=== PATIENT | male | born 1955 | race Caucasian/White ===

== ENCOUNTER 2019-03-05 09:44 | Outpatient (REF) | payer MEDICARE, SELFPAY ==
[2019-03-05 22:04] LABS: Abs Immature Grans 0.02 k/cumm (0.0-0.09); Absolute Basophil Count 0.02 k/cumm (0.0-0.2); Absolute Eosinophil Count 0.06 k/cumm (0.0-0.7); Absolute Lymphocyte Count 1.93 k/cumm (1.2-3.4); Absolute Monocyte Count 0.72 k/cumm (0.11-0.7); Absolute Neutrophil Count 4.26 k/cumm (1.2-6.7); Basophils % 0.3; Eosinophils % 0.9; HCT 48.1 % (40.0-50.0); HGB 16.7 g/dL (13.5-17.5); Immature Grans % 0.3; Lymphocytes % 27.5; Mean Corp. HGB Concentration 34.7 g/dL (32.0-36.0); Mean Corpuscular Hemoglobin 31.3 pg (27.0-33.0); Mean Corpuscular Volume 90.2 fL (80-95); Monocytes % 10.3; Neutrophils % 60.7; Platelet Count 228 x1000/uL (130-400); RBC 5.33 m/cumm (4.50-6.00); RBC Distribution Width 13.4 % (11.8-14.1); White Blood Cell Count 7.01 k/cumm (4.4-10.8)
[2019-03-05 22:05] LABS: ALT 47 U/L (12-78); AST 24 U/L (15-37); Albumin 4.4 g/dL (3.4-5.0); Alkaline Phosphatase 51 U/L (46-116); Anion Gap 9.8 mmol/L (3-11); BUN 18 mg/dL (7-18); Bilirubin, Total 1.8 mg/dL (0.2-1.0); CO2 26.2 mmol/L (21.0-32.0); Calcium 8.3 mg/dL (8.5-10.1); Chloride 99 mmol/L (98-107); Glucose 106 mg/dL (70-100); Potassium 4.1 mmol/L (3.5-5.1); Sodium 135 mmol/L (136-145); Total Protein 7.6 g/dL (6.4-8.2)
[2019-03-05 23:09] LABS: ESR 5 MM/HR (1-20)
[2019-03-07 10:42] LABS: PSA, Screening 0.5 ng/ml (0-4.5)
== END 2019-03-05 10:04 ==
LOC: NCHCN 09:44
PROVIDERS: PCP Family Medicine; Visit Provider Family Medicine
DX: I10 Essential (primary) hypertension (principal); Z12.5 Encounter for screening for malignant neoplasm of prostate
CPT/HCPCS: 80053; 84153; 85652; 85025; 86140

== ENCOUNTER 2019-03-19 14:37 | Outpatient (CLI) | payer MEDICARE, SELFPAY ==
--- NOTE | 2019-03-19 01:54 | DI.RAD_ITS ---
SYMPTOMS/DIAGNOSIS: RIB PAIN, R07.81 PA AND LATERAL CHEST AND LEFT RIBS: Comparison is made with chest x-ray dated . The heart size is normal. The aorta is not dilated. The lungs appear clear. There is no evidence of pneumothorax. A marker was placed over the lower left ribs in the area of the patient's pain. No rib fracture is visible. There is no thoracic compression fracture. Degenerative disc changes are seen in the thoracic spine. IMPRESSION: No acute abnormality.
== END 2019-03-19 14:57 ==
PROVIDERS: PCP Family Medicine; Visit Provider Family Medicine
DX: R07.81 Pleurodynia (principal)
CPT/HCPCS: 71046; 71100

== ENCOUNTER → 2019-09-04 10:01 | Outpatient (BNVA) | payer MEDICARE, SELFPAY | PROVIDERS: PCP Family Medicine; Referring Provider Family Medicine; Visit Provider Nurse Practitioner Adult Health | DX: G56.03 Carpal tunnel syndrome, bilateral upper limbs (principal); G56.23 Lesion of ulnar nerve, bilateral upper limbs | CPT/HCPCS: 95910; 99203 ==

== ENCOUNTER 2019-09-09 08:22 | Outpatient (CLI) | payer MEDICARE, SELFPAY ==
[2019-09-09 09:38] LABS: Hemoglobin A1C 5.6 % (4.5-6.2)
[2019-09-09 09:48] LABS: TSH (W/Ref FT4) 2.26 uIU/mL (0.36-3.74)
== END 2019-09-09 08:42 ==
PROVIDERS: PCP Family Medicine; Visit Provider Family Medicine
DX: I10 Essential (primary) hypertension (principal); R73.9 Hyperglycemia, unspecified; R30.0 Dysuria
CPT/HCPCS: 36415; 83036; 84443

== ENCOUNTER 2020-11-13 11:16 | Outpatient (REF) | payer MEDICARE, SELFPAY ==
[2020-11-13 15:24] LABS: ALT 52 U/L (16-63); AST 30 U/L (15-37); Albumin 4.5 g/dL (3.4-5.0); Alkaline Phosphatase 49 U/L (46-116); Anion Gap 9.1 mmol/L (3-11); BUN 17 mg/dL (7-18); Bilirubin, Total 1.1 mg/dL (0.2-1.0); CO2 23.9 mmol/L (21.0-32.0); CREATININE 1.03 mg/dL (0.70-1.30); Calcium 8.7 mg/dL (8.5-10.1); Calculated LDL 123 mg/dL (<100); Chloride 102 mmol/L (98-107); Cholesterol 200 mg/dL (<200); Glucose 119 mg/dL (74-106); HDL Cholesterol 42 mg/dL (40-60); Potassium 4.3 mmol/L (3.5-5.1); Sodium 135 mmol/L (136-145); Total Protein 7.6 g/dL (6.4-8.2); Triglyceride 179 mg/dL (<150)
[2020-11-13 22:02] LABS: PSA, Screening 0.4 ng/mL (0.0-4.5)
== END 2020-11-13 11:36 ==
LOC: NCHCN 11:16
PROVIDERS: PCP Family Medicine; Visit Provider Family Medicine
DX: I10 Essential (primary) hypertension (principal); N40.0 Benign prostatic hyperplasia without lower urinary tract symptoms; G56.03 Carpal tunnel syndrome, bilateral upper limbs; Z12.5 Encounter for screening for malignant neoplasm of prostate
CPT/HCPCS: 80053; 80061; 84153

== ENCOUNTER 2021-02-15 14:58 | Outpatient (REF) | payer MEDICARE, SELFPAY ==
[2021-02-16 12:13] LABS: COVID-19 RT-PCR UVMMC Result Negative (Negative)
== END 2021-02-15 14:59 | disposition home or self-care (01) ==
LOC: LBN 14:58
PROVIDERS: PCP Family Medicine; Visit Provider Nurse Practitioner Family
DX: Z20.822 Contact with and (suspected) exposure to COVID-19 (principal); R30.0 Dysuria
CPT/HCPCS: 87077; U0003; U0005; 87086; 87186

== ENCOUNTER 2021-07-26 13:59 | Outpatient (REF) | payer MEDICARE, SELFPAY ==
[2021-07-26 14:14] LABS: Abs Immature Grans 0.03 10^3/uL (0.0-0.06); Absolute Basophil Count 0.04 10^3/uL (0.0-0.2); Absolute Eosinophil Count 0.11 10^3/uL (0.0-0.7); Absolute Lymphocyte Count 1.93 10^3/uL (1.2-3.4); Absolute Monocyte Count 0.61 10^3/uL (0.1-0.8); Absolute Neutrophil Count 3.24 10^3/uL (1.2-6.7); Basophils % 0.7; Eosinophils % 1.8; HCT 43.1 % (40.0-50.0); HGB 14.7 g/dL (13.5-17.5); Immature Grans % 0.5; Lymphocytes % 32.4; MCH 31.5 pg (27.0-33.0); MCHC 34.1 % (32.0-36.0); MCV 92.5 fL (80-95); MPV 10.4 fL (8.0-11.0); Monocytes % 10.2; Neutrophils % 54.4; Nucleated RBC 0 %; Platelet Count 240 10^3/uL (130-400); RBC 4.66 10^6/uL (4.36-5.78); RDW 12.3 % (11.8-14.1); RDW-SD 42.2 fL; WBC 5.96 10^3/uL (4.4-10.8)
[2021-07-26 14:31] LABS: ESR 8 mm/hr (0-20)
[2021-07-26 15:15] LABS: C-Reactive Protein 0.29 mg/dL (0.0-0.3); Uric Acid 5.7 mg/dL (3.5-7.2)
== END 2021-07-26 14:00 | disposition home or self-care (01) ==
LOC: LBN 13:59
PROVIDERS: PCP Family Medicine; Visit Provider Nurse Practitioner Family
DX: R22.31 Localized swelling, mass and lump, right upper limb (principal)
CPT/HCPCS: 85652; 84550; 85025; 86140

== ENCOUNTER 2022-06-08 18:21 | Outpatient (REF) | payer MEDICARE, SELFPAY ==
[2022-06-10 11:25] LABS: COVID-19 RT-PCR UVMMC Result Negative (Negative)
== END 2022-06-08 18:22 | disposition home or self-care (01) ==
LOC: LBN 18:21
PROVIDERS: PCP Family Medicine; Visit Provider Physician Assistant Medical
DX: Z20.822 Contact with and (suspected) exposure to COVID-19 (principal)
CPT/HCPCS: U0003; U0005

== ENCOUNTER 2022-08-09 15:10 | Outpatient (REF) | payer MEDICARE, SELFPAY ==
[2022-08-09 19:44] LABS: Hemoglobin A1C 5.6 % (<5.7)
[2022-08-09 20:27] LABS: ALT 43 U/L (16-63); AST 26 U/L (15-37); Albumin 4.3 g/dL (3.4-5.0); Alkaline Phosphatase 52 U/L (46-116); Anion Gap 11.4 mmol/L (3-11); BUN 20 mg/dL (7-18); Bilirubin, Total 0.8 mg/dL (0.2-1.0); CO2 22.6 mmol/L (21.0-32.0); CREATININE 0.9 mg/dL (0.70-1.30); Chloride 102 mmol/L (98-107); Estimated GFR 94.19 (mL/min/1.73m2); Glucose 107 mg/dL (74-106); Potassium 3.7 mmol/L (3.5-5.1); Sodium 136 mmol/L (136-145); TSH 2.83 uIU/mL (0.36-3.74); Vitamin B12 370 pg/mL (193-986)
== END 2022-08-09 15:11 | disposition home or self-care (01) ==
LOC: NCHCN 15:10
PROVIDERS: PCP Family Medicine; Visit Provider Family Medicine
DX: Z00.00 Encounter for general adult medical examination without abnormal findings (principal); I10 Essential (primary) hypertension; R10.12 Left upper quadrant pain; R07.9 Chest pain, unspecified; R73.03 Prediabetes; M79.642 Pain in left hand; M79.641 Pain in right hand
CPT/HCPCS: 80053; 82607; 83036; 84443

== ENCOUNTER 2022-08-25 01:26 | Outpatient (CLI) | payer MEDICARE, SELFPAY ==
--- NOTE | 2022-08-25 08:45 | DI.NM_ITS ---
APPROVED REPORT Exam: Exercise Treadmill Patient Location: Out-Patient Room/Bed: Stress Nurse: Jo Ann Saavedra RN Ordering Provider:AMAN LAUREN, Contact Number: [phone] BMI: 28.05 Baseline Rhythm: Sinus Rhythm Comment: Minimal ST elevation, anterior leads Indications: Chest pain. Medical History Medical History: HTN. Bradycardia. Cardiac Medications: Losartan. HCTZ. Aspirin. Allergies: Lyrica. Tramadol. Iodinated contrast media. Cipro. Gabapentin. Lisinopril. Cardiac Risk Factors: Family history. HTN. HLD. Former smoker. Previous Cardiac Procedures: None Pretest Chest Pain Characteristics: None Exercise History: Physically active Physical Disabilities: None Lung Sounds: Clear to auscultation Heart Sounds: Regular Stress Test Details Test: Exercise stress testing was performed using a Erik protocol. Nuclear Acquisition: Rest Tc-99m/Stress Tc-99m 1 day Rest Isotope: Tc-99m Sestamibi. Dose: 10.2 Date: 08/25/2022 Injection Time: 0900 Stress Isotope: Tc-99m Sestamibi. Dose: 32 Date: 08/25/2022 Injection Time: 1034 HR Resting HR Supine: 53 bpm Max Heart Rate (APMHR): 154.092741 bpm Resting HR Standin bpm Target HR (85% APMHR): 130.999687 bpm Max HR Achieved: 150 bpm % of APMHR: 97.40 Recovery HR: 75 bpm HR response to stress: Normal HR response to stress BP Resting BP Supine: 174/82 mmHg Resting BP Standin/82 mmHg Max BP: 184/88 mmHg Recovery BP: 168/88 mmHg BP response to stress: Normal blood pressure response to stress. ECG Resting ECG: Sinus Rhythm Ectopy: none Stress ECG: Sinus Tachycardia ST Change: No significant ST segment changes noted Arrhythmia: None Recovery ECG: Sinus Rhythm Recovery ST Change: ST depressions Lead(s): V4, V5 Recovery ST Deviation: 0.5-1mm mm Recovery Arrhythmia: None Clinical Reason for Termination: Fatigue Stress Symptoms: Chest pain, General Fatigue Exercise duration: 09 min29 sec Highest Stage Reached: Stage 4: 4.2 mph at 16% grade. Exercise capacity: 10.95 METs Scale: Active Angina Score: Non-Limiting Rate Pressure Product: [id number] Stress ECG Conclusion 1. Resting electrocardiogram was within normal limits 2. Patient underwent exercise testing using the Erik protocol and completed a workload of 10.95 METS 3. Normal heart rate and blood pressure response to exercise. Patient achieved 97% of predicted hear t rate for age 4. Peak exercise there was approximately [address] depression in the inferior and anterolat eral leads consistent with myocardial ischemia 5. There were no dysrhythmias 6. See MPI report Stress Test Summary STAGE Time (mins) Speed (mph) Grade (%) HR BP SpO2 SYMPTOMS METS Supine 53 174/82 Standing 60 180/82 1 3 1.7 10 102 164/80 4.5 2 6 2.5 12 114 174/78 95 7 3 9 3.4 14 150 3/10 chest pain 10 1 min recovery 128 184/80 3/10 chest pain 3 min recovery 89 184/88 96 Chest pain subsided 6 min recovery 75 168/88 6/10 left shoulder pain. Left shoulder pain reported during recovery. Pt reports shoulder pain is chronic due to a torn rotato r cuff. Pt reports holding onto the treadmill bar may have aggravated his shoulder. 3/10 chest pain o ccuring in stage4 of exercise, subsided within 1 minute of rest. MPI Conclusion Myocardial perfusion is normal without evidence of ischemia or prior infarction EF 46%, normal wall motion Radiologist Interpretation Radiologist agrees with Slasher Hand's Interpretation. Radiologist Interpretation by: Braulio Alcazar MD Interpretation Date/Time: 08/25/2022 16:51:47
== END 2022-08-25 01:46 ==
PROVIDERS: PCP Family Medicine; Visit Provider Family Medicine
DX: R07.9 Chest pain, unspecified (principal)
CPT/HCPCS: 78452; 93016; 93018; 93017

== ENCOUNTER 2022-09-21 11:58 | Outpatient (CLI) | payer MEDICARE, SELFPAY ==
--- NOTE | 2022-09-21 | DI.CT_ITS ---
Exam(s) CT ABDOMEN PELVIS WO EXAM: CT ABDOMEN PELVIS WO CLINICAL HISTORY: ABD PAIN R10.9, ? DIVERTICULITIS, LLQ PAIN AND FEVER. TECHNIQUE: Imaging Protocol: Axial computed tomography images with coronal and sagittal reformatted images were created and reviewed. Oral: COMPARISON: CT PELVIC/LOWER ABD WITHOUT CONT from 11/25/2014 CT,NM,TMT NM MPI REST STRESS GRP from 08/25/2022 FINDINGS: ABDOMEN: Lung Bases: Normal where visualized. Liver: Normal density. No measurable mass. Gallbladder and biliary tract: No radiodense calculus or dilation. Pancreas: Normal density, no abnormal calcifications or inflammatory process. Spleen: Normal. Kidneys: Normal size, contour and axis. No radiodense stones or obstructive uropathy. No masses seen. Adrenal glands: No masses seen. Lymph nodes: Within normal limits. Abdominal Aorta: Abdominal portion non-dilated. [id number] atherosclerotic changes. PELVIS: Bladder: Symmetric distention, no gross wall thickening. Bowel: Diverticulosis descending and sigmoid colon. Wall thickening and adjacent stranding at the pr oximal sigmoid consistent with diverticulitis. No evidence of perforation. No obstruction or bowel wall thickening. Appendix normal. Peritoneal cavity: No ascites, no focal collection. Reproductive organs: Within normal limits. Bones: Degenerative changes noted in the lumbar spine. IMPRESSION: Sigmoid diverticulitis. RADIATION DOSE DELIVERED: 812.5mGy.cm Total DLP DATA REPOSITORY: All CT scans at this facility are submitted to the National Radiology Data Registry (NRDR) Dose Index Registry (DIR) with the [employer] (ACR). RADIATION OPTIMIZATION: All CT scans at this facility use at least one of these dose optimization te chniques: automated exposure control; mA and/or kV adjustment per patient size (includes targeted exa ms where dose is matched to clinical indication); or iterative reconstruction.
== END 2022-09-21 12:18 ==
LOC: DI 11:58
PROVIDERS: PCP Family Medicine; Visit Provider Physician Assistant Medical
DX: K57.32 Diverticulitis of large intestine without perforation or abscess without bleeding (principal)
CPT/HCPCS: 74176

== ENCOUNTER 2022-09-21 19:46 | Outpatient (REF) | payer MEDICARE, SELFPAY ==
[2022-09-21 16:35] LABS: Abs Immature Grans 0.06 10^3/uL (0.0-0.06); Absolute Basophil Count 0.03 10^3/uL (0.0-0.2); Absolute Eosinophil Count 0.15 10^3/uL (0.0-0.7); Absolute Lymphocyte Count 2.28 10^3/uL (1.2-3.4); Absolute Monocyte Count 1.59 10^3/uL (0.1-0.8); Absolute Neutrophil Count 8.54 10^3/uL (1.2-6.7); Basophils % 0.2; Eosinophils % 1.2; HCT 44.5 % (40.0-50.0); HGB 15.2 g/dL (13.5-17.5); Immature Grans % 0.5; MCH 31.2 pg (27.0-33.0); MCHC 34.2 % (32.0-36.0); MCV 91 fL (80-95); MPV 10.9 fL (8.0-11.0); Monocytes % 12.6; Neutrophils % 67.5; Platelet Count 229 10^3/uL (130-400); RBC 4.87 10^6/uL (4.36-5.78); RDW 12.9 % (11.8-14.1); RDW-SD 43.3 fL; WBC 12.65 10^3/uL (4.4-10.8)
[2022-09-21 16:43] LABS: Bacteria Rare HPF (Negative); C & S Indicated? C&S Done As Ordered; Casts Negative LPF (Negative); Crystals Negative HPF (Negative); Epithelial Cells Rare HPF (Negative); Mucus Negative (Negative); RBC 0-2 HPF (0-2)
[2022-09-21 16:47] LABS: Diff Comment Diff Reviewed; RBC Morphology Normal
[2022-09-21 16:49] LABS: ALT 26 U/L (16-63); AST 24 U/L (15-37); Albumin 4.3 g/dL (3.4-5.0); Alkaline Phosphatase 65 U/L (46-116); Anion Gap 11.8 mmol/L (3-11); BUN 13 mg/dL (7-18); CO2 26.2 mmol/L (21.0-32.0); Calcium 9.4 mg/dL (8.5-10.1); Chloride 99 mmol/L (98-107); Estimated GFR 83.01 (mL/min/1.73m2); Glucose 111 mg/dL (74-106); Potassium 4.5 mmol/L (3.5-5.1); Sodium 137 mmol/L (136-145)
== END 2022-09-21 19:47 | disposition home or self-care (01) ==
LOC: LBN 19:46
PROVIDERS: PCP Family Medicine; Visit Provider Physician Assistant Medical
DX: R10.9 Unspecified abdominal pain (principal); R30.0 Dysuria
CPT/HCPCS: 80053; 81015; 85025; 87086

== ENCOUNTER 2022-10-13 10:48 | Outpatient (CLI) | payer MEDICARE, SELFPAY ==
--- NOTE | 2022-10-13 | DI.CT_ITS ---
Exam(s) CT ABDOMEN PELVIS WO EXAM: CT ABDOMEN PELVIS WO CLINICAL HISTORY: DIVERTICULITIS OF SIGMOID COLON, K57.32; ABD PAIN, R10.9. TECHNIQUE: Imaging Protocol: Axial computed tomography images with coronal and sagittal reformatted images were created and reviewed. COMPARISON: CT CT ABDOMEN PELVIS WO from 09/21/2022 FINDINGS: ABDOMEN: Lung Bases: Normal where visualized. Liver: Normal density. No measurable mass. Gallbladder and biliary tract: No radiodense calculus or biliary ductal dilation. Pancreas: Normal density. There are some calcifications seen in the pancreatic head which may reflect prior episodes of pancreatitis. These are unchanged. Spleen: Normal. Kidneys: Normal size, contour and axis.No radiodense stones or obstructive uropathy. No masses seen. Adrenal glands: No mass is seen. Lymph nodes: Within normal limits. Abdominal Aorta: Abdominal portion non-dilated. Atherosclerosis is present. PELVIS: Bladder:Symmetric distention, no gross wall thickening. Bowel: No obstruction or bowel wall thickening. Appendix is unremarkable. There is diverticulosis se en in the colon, but no evidence of acute diverticulitis. Peritoneal cavity: No ascites, collection or mesenteric inflammatory response. No free air. Reproductive organs: Unremarkable as visualized. Bones: Within normal limits. There is an old healed right inferior pubic ramus fracture. Soft Tissues: There are small bilateral fat containing inguinal hernias. There is a small fat contain ing umbilical hernia. IMPRESSION: 1. No acute abdominal or pelvic process. 2. Colonic diverticulosis, but no evidence of acute diverticulitis. RADIATION DOSE DELIVERED: 1,061.84mGy.cm Total DLP DATA REPOSITORY: All CT scans at this facility are submitted to the National Radiology Data Registry (NRDR) Dose Index Registry (DIR) with the [employer] (ACR). RADIATION OPTIMIZATION: All CT scans at this facility use at least one of these dose optimization te chniques: automated exposure control; mA and/or kV adjustment per patient size (includes targeted exa ms where dose is matched to clinical indication); or iterative reconstruction.
== END 2022-10-13 11:08 ==
LOC: DI 10:50
PROVIDERS: PCP Family Medicine; Visit Provider Nurse Practitioner Family
DX: K57.30 Diverticulosis of large intestine without perforation or abscess without bleeding (principal)
CPT/HCPCS: 80061; 82550; 74176; 82565

== ENCOUNTER 2022-10-13 15:21 | Outpatient (REF) | payer MEDICARE, SELFPAY ==
[2022-10-13 16:43] LABS: Abs Immature Grans 0.06 10^3/uL (0.0-0.06); Absolute Basophil Count 0.05 10^3/uL (0.0-0.2); Absolute Eosinophil Count 0.25 10^3/uL (0.0-0.7); Absolute Lymphocyte Count 2.26 10^3/uL (1.2-3.4); Absolute Monocyte Count 0.64 10^3/uL (0.1-0.8); Absolute Neutrophil Count 3.89 10^3/uL (1.2-6.7); Basophils % 0.7; Eosinophils % 3.5; HCT 44.8 % (40.0-50.0); HGB 15.3 g/dL (13.5-17.5); Immature Grans % 0.8; Lymphocytes % 31.6; MCH 31.2 pg (27.0-33.0); MCHC 34.2 % (32.0-36.0); MCV 91 fL (80-95); MPV 10.5 fL (8.0-11.0); Neutrophils % 54.4; Platelet Count 242 10^3/uL (130-400); RBC 4.91 10^6/uL (4.36-5.78); RDW 12.6 % (11.8-14.1); RDW-SD 42.1 fL; WBC 7.15 10^3/uL (4.4-10.8)
== END 2022-10-13 15:22 | disposition home or self-care (01) ==
LOC: NCHCN 15:21
PROVIDERS: PCP Family Medicine; Visit Provider Family Medicine
DX: K57.32 Diverticulitis of large intestine without perforation or abscess without bleeding (principal); R10.9 Unspecified abdominal pain; R07.9 Chest pain, unspecified
CPT/HCPCS: 80061; 82550; 85025

== ENCOUNTER → 2022-10-18 12:28 | Outpatient (BNVA) | payer MEDICARE, SELFPAY | PROVIDERS: PCP Family Medicine; Referring Provider Family Medicine; Visit Provider Surgery | DX: K57.92 Diverticulitis of intestine, part unspecified, without perforation or abscess without bleeding (principal); K21.9 Gastro-esophageal reflux disease without esophagitis; K40.20 Bilateral inguinal hernia, without obstruction or gangrene, not specified as recurrent; R10.12 Left upper quadrant pain; I10 Essential (primary) hypertension; Z80.0 Family history of malignant neoplasm of digestive organs | CPT/HCPCS: 99205; 99243 ==

== ENCOUNTER → 2022-10-26 11:03 | Outpatient (CLI) | payer MEDICARE, SELFPAY ==
--- NOTE | 2022-10-26 12:23 | DI.RAD_ITS ---
Exam(s) XR CERVICAL SPINE COMP 4-5V EXAM: XR CERVICAL SPINE COMP 4-5V CLINICAL HISTORY: NECK PAIN M54.2, EVALUATE FOR BONY ABNORMALITIES. TECHNIQUE: 2D digital imaging was performed. COMPARISON: CR CERVICAL SP. LIMITED (TRAUMA) from 10/18/2014 CR XR SHOULDER RT COMPLETE 2+V from 10/26/2022 FINDINGS: Five views: There is no evidence of obvious acute cervical spine fracture nor listhesis. No offset of the spinal laminar line.. There is mild disc space narrowing at C5-6 and C6-7 levels. No prominent Luschka rosendo int osteophytes. Small bilateral cervical ribs at C7 level, larger on the left side. Some facet art hropathy is noted, most evident at the C 3-4 and C4-5 levels. No facet malalignment. IMPRESSION: Degenerative changes as described above. Also small C7 cervical ribs noted, left larger than right. DATA REPOSITORY: RADIATION DOSE DELIVERED:
--- NOTE | 2022-10-26 12:23 | DI.RAD_ITS ---
Exam(s) XR SHOULDER RT COMPLETE 2+V EXAM: XR SHOULDER RT COMPLETE 2+V CLINICAL HISTORY: PAIN RT SHOULDER M25.511. TECHNIQUE: 2D digital imaging was performed. COMPARISON: CR LEFT SHOULDER COMPLETE from 04/24/2011 FINDINGS: Five views: No evidence of fracture or dislocation. No calcifications in subacromial space which is not diminish ed. No obvious degenerative changes in the glenohumeral joint. There are moderate degenerative moore ges in the AC joint. No clavicle fracture seen. IMPRESSION: Degenerative AC joint changes. DATA REPOSITORY: RADIATION DOSE DELIVERED:
== END ==
PROVIDERS: PCP Family Medicine; Visit Provider Physician Assistant Medical
DX: M25.511 Pain in right shoulder (principal); M19.011 Primary osteoarthritis, right shoulder; M50.322 Other cervical disc degeneration at C5-C6 level; M50.323 Other cervical disc degeneration at C6-C7 level; M47.812 Spondylosis without myelopathy or radiculopathy, cervical region
CPT/HCPCS: 72050; 73030

== ENCOUNTER 2022-11-02 05:55 | Day surgery (SDC) | payer MEDICARE, SELFPAY ==
[2022-11-02 06:29] VITALS: BP 159/93; PULSE 73; RESP 18; TEMP 37.1; O2SAT 95
[2022-11-02] MEDS: Lactated Ringers 1,000 ML 80 ML IV (06:47)
--- NOTE | 2022-11-02 06:58 | W.ANESPRE ---
General Info Date of Service Date Performed: 11/02/22 Height: 5 ft 9 in Weight: 89.811 kg Body Mass Index (BMI): 29.2 Surgical Procedure: Operation Date: 11/02/22 07:35 Proposed Procedure Side Surgeon p Colonoscopy Anshul Shafer MD Actual Procedure Side Surgeon p Colonoscopy Not Applicable Anshul Shafer MD Meds Allergies and Home Medications Allergies Allergy/AdvReac Type Severity Reaction Status Date / Time ciprofloxacin [From Cipro] Allergy Severe Vomiting Unverified 11/02/22 06:36 gabapentin Allergy Severe Paranoia Unverified 11/02/22 06:36 Iodinated Contrast Media Allergy Severe seizures Unverified 11/02/22 06:36 iodine Allergy Severe Anaphylaxsi Unverified 11/02/22 06:36 s pregabalin [From Lyrica] Allergy Severe paronia Unverified 11/02/22 06:36 lisinopril Allergy Intermediate cough Unverified 11/02/22 06:36 tramadol Allergy Intermediate vomiting Unverified 11/02/22 06:36 stomach cramps Home Medication Medication Instructions Recorded aspirin 81 mg tablet,delayed 1 tab PO DAILY 10/18/14 release (Aspir-) acetaminophen 500 mg tablet 1,000 mg PO Q6H 11/01/14 naproxen sodium 220 mg capsule 440 mg PO BID PRN PRN ##0 11/06/14 (Aleve) ibuprofen 200 mg capsule (Advil 400 mg PO PRN PRN 12/26/14 Liqui-Gel) triamcinolone acetonide 0.1 % 1 applic topical BID PRN 08/23/19 topical cream pantoprazole 40 mg tablet,delayed 40 mg PO DAILY 10/04/22 release rosuvastatin 5 mg tablet 5 mg PO DAILY 10/04/22 bisacodyl 5 mg tablet,delayed 5 mg PO ONCE colonscopy bowel prep 10/18/22 release (Dulcolax (bisacodyl)) #4 tabs losartan 25 mg tablet 100 mg PO DAILY 10/18/22 polyethylene glycol 3350 17 238 g PO ONCE colonoscopy prep 10/18/22 gram/dose oral powder #238 grams Current Visit Medications: Current Medications Generic Name Dose Route Start Last Admin Trade Name Freq PRN Reason Stop Dose Admin Ringer's Solution 1,000 mls @ 80 mls/hr 11/02/22 06:00 11/02/22 06:47 IV 12/01/22 23:59 80 mls/hr INFUSION MARIBEL Administration IV Miscellaneous Supplies 1 each 11/02/22 06:00 Iv Access IV 12/01/22 23:59 DIRECTED MARIBEL Sodium Chloride 0 ml 11/02/22 06:00 Normal Saline Flush 10 Ml Syr IV 12/01/22 23:59 PRN PRN Sodium Chloride 0 ml 11/02/22 06:00 Normal Saline 10 Ml Vial IJ 12/01/22 23:59 DIRECTED PRN Sterile Water 0 ml 11/02/22 06:00 Water,Injection,Sterile 10 Ml Vial IJ 12/01/22 23:59 DIRECTED PRN PFSH Active Problems Active Problems: Problem Status Onset Code Chronic GERD K21.9 Bilateral inguinal hernia, without obstruction or gangrene, not specified as recurrent K40.20 Family hx of colon cancer Z80.0 Hearing deficit H91.90 LUQ pain R10.12 Chest pain R07.9 Abdominal pain R10.9 Diverticulitis K57.92 Hypertension I10 H/O surgical procedure Z98.89 H/O traumatic fracture Z87.81 h/o uethral injury h/o low back trauma Traumatic hematoma of left thigh S70.12XA Cellulitis of left thigh L03.116 Constipation due to pain medication T50.901A, K59.09 Medical History Medical History Actinic keratitis Arthralgia Bilateral hand pain BPH (benign prostatic hyperplasia) Bradycardia Crush injury Dysuria Fatigue Insomnia Lumbar spinal stenosis Pelvic fracture RLS (restless legs syndrome) Stenosis of intervertebral foramen Tick bite Urethral stricture Surgical History Surgical History History of lumbosacral spine surgery Tobacco Smoking/Tobacco Use Status: Former Tobacco Use Alcohol Alcohol Intake: never Substance Use Substance use: Never Vital Signs and Lab Results Vital Signs Most Recent Vital Signs in EMR: Most Recent Vital Signs Temp Pulse Resp BP Pulse Ox 37.1 C 73 18 159/93 H 95 11/02/22 06:29 11/02/22 06:29 11/02/22 06:29 11/02/22 06:29 11/02/22 06:29 Lab Results Blood Type / Crossmatch: No Data to Display Complete Blood Count: White Blood Count 7.15 10^3/uL (4.4-10.8) 10/13/22 08:04 Red Blood Count 4.91 10^6/uL (4.36-5.78) 10/13/22 08:04 Hemoglobin 15.3 g/dL (13.5-17.5) 10/13/22 08:04 Hematocrit 44.8 % (40.0-50.0) 10/13/22 08:04 Platelet Count 242 10^3/uL (130-400) 10/13/22 08:04 Complete Metabolic Panel: No Data to Display Liver Function Panel: No Data to Display Coagulation Panel: No Data to Display Cardiac Panel: No Data to Display Arterial Blood Gas: No Data to Display Venous Blood Gas: No Data to Display Pancreas Panel: No Data to Display Thyroid Panel: No Data to Display Infectious Disease: No Data to Display Blood Cultures: No Data to Display Toxicology Panel: No Data to Display Imaging and Studies Imaging and Studies Study information below may be from another EMR and interpreted by another provider. Please see original notes in EMR for more complete details. Stress Test Summary: 08/25/2022: Stress ECG Conclusion 1. Resting electrocardiogram was within normal limits 2. Patient underwent exercise testing using the Erik protocol and completed a workload of 10.95 METS 3. Normal heart rate and blood pressure response to exercise. Patient achieved 97% of predicted heart rate for age 4. Peak exercise there was approximately [address] depression in the inferior and anterolateral leads consistent with myocardial ischemia 5. There were no dysrhythmias 6. See MPI report Per Dr. Kwan (cardiology): Stress test done in August showed well above average exercise tolerance. Myocardial perfusion imaging is normal, no ischemia or infarction. The electrocardiographic portion of the test would be considered a false positive and not clinically of any significance. Please be advised that I have never personally seen or examined the patient. His stress test is not concerning. Based on that alone I would consider him below average risk for colonoscopy and/or hernia repair Anesthesia Assessment and Plan Anesthesia History Personal History: No History of Anesthesia Complications Family History: No Family History of Anesthesia Complications Exercise Tolerance Exercise Tolerance: Metabolic Equivalents>4 Pertinent Negatives Pertinent Negatives: No Symptoms of GERD, No Major Cardiovascular Symptoms or Complaints and No Major Pulmonary Symptoms or Complaints Cardiac & Pulmonary Exam Cardiac Exam: Normal S1/S2 Heart Sounds Pulmonary Exam: Clear Bilateral Breath Sounds Implantable Cardiac Device Does patient have a Pacemaker or an ICD?: No Airway Exam Known Difficult Airway: No Mallampati Class: 2 Mouth Opening: Normal (> 3cm) Thyromental Distance: Greater than 3 cm Facial Hair: Full Catherine Neck Range of Motion: Limited ROM (Patient reports right hand tingling on pinky on pinky, ring, and middle finger. Being followed by Dr. Heller, reports as follows: There is no evidence of obvious acute cervical spine fracture nor listhesis. No offset of the spinal laminar line.. There is mild disc space narrowing at C5-6 and C6-7) Neck Circumference: Normal Teeth Condition: Removable Dentures/Plates Upper and Removable Dentures/Plates Lower ASA Classification ASA Score: ASA 2 Emergency Case?: No NPO Status NPO Status: NPO Clears >2 hours, Solids >8 hours Anesthesia Plan Resuscitation Status: Full Code Anesthesia Technique: General Anesthesia Airway Planned: Natural Airway Monitors Used: Standard Monitors
[2022-11-02 07:16] VITALS: BMI 29.2
--- NOTE | 2022-11-02 07:56 | BOWEL_PTH ---
PATIENT: Kareem Valenzuela LOC: [facility] U#:[id number] AGE/SX: 67/M ROOM: RE11/02/[address]: Anshul Shafer : 1955 BED: DIS: 11/02/2022 SPEC #: [id number] RECD: 11/02/22 10:29 STATUS: ALVIN REQ #: [id number] CAMELIA: 11/02/22 07:[address]: Anshul Shafer DEPT: Surgical Specimen RECD BY: Taylor Hale ENTERED: 11/02/22 10:30 SP TYPE: Bowel OTHR DR: Alcira Heller V Tissues: 1 - BIOPSY BOWEL Procedures: GROSS AND MICRO LEVEL 4 Comments: [id number]
[2022-11-02 08:05] VITALS: BP 131/90; PULSE 66; RESP 16; TEMP 36.5; O2SAT 94
--- NOTE | 2022-11-02 08:07 | W.COLOREPORT ---
Date of service: 11/02/22 Time of Service: 08:07 Colonoscopy Report Procedure Description: Procedures performed: 1. Colonoscopy with snare polypectomy x1 Preoperative diagnosis:Screening colonoscopy, + family history Postoperative diagnosis: Colorectal polyps, mild sigmoid diverticulosis, mild grade 1 internal hemorrhoids Surgeon: Mitul Shafer Anesthesia: Hollis Indication for procedure: Patient is a 67 yo man whose brother was recently diagnosed with colorectal cancer. He has no symtoms. He has no prior C-scope. Cologuard negative twice. Findings: A 3 to 5 mm sessile polyp was removed from the rectum with snare technique.? Minimal/mild diverticular changes only in the sigmoid colon.? Mild grade 1 internal hemorrhoids were noted on retroflexion. Surveillance/follow-up recommendations: Because of the family history and finding the polyp today I recommend repeating in 3-5 years depending on histology.? If adenomatous in 5 years, if villous or sessile serrated histology then 3 years. Should not go longer than 5 year intervals with the family history. Complications: None Blood loss: Minimal Procedure in detail: Written consent was obtained from the patient who was in agreement with the risks, benefits and indications of the procedure.? We went to the endoscopy suite and laid the patient in left lateral decubitus position.? Anesthesia was administered which was tolerated well.? A timeout was performed and when we are all in agreement we began the procedure. Digital rectal exam and visual examination was performed and within normal limits.? A well?lubricated colonoscope was advanced without difficulty all the way to the cecum identified by the ileocecal valve, and triangular folds and appendiceal orifice.? It was then slowly withdrawn.?? Retroflexion was performed in the rectum.? The findings/interventions are noted above. The scope was then removed and the patient tolerated the procedure well and was then taken back to the PACU in hemodynamically stable condition.
--- NOTE | 2022-11-02 08:16 | W.ANESPOSTOP ---
Postoperative Evaluation Date, Time and Location Date Performed: 11/02/22 Time Performed: 08:14 Patient Location: Day Surgery Unit Vital Signs Most Recent Imported Vital Signs: Most Recent Vital Signs Temp Pulse Resp BP Pulse Ox 37.1 C 73 18 159/93 H 95 11/02/22 06:29 11/02/22 06:29 11/02/22 06:29 11/02/22 06:29 11/02/22 06:29 Pain Score Most Recent Pain Score: Most Recent Pain Score Pain Level 10 11/02/22 06:29 Assessment Mental Status: Awake (Alert & Oriented to Patient Baseline) Airway and Respiratory Function: Patent airway with normal (patient baseline) respiratory exam Cardiovascular Function: Hemodynamically Stable Hydration Status: Adequately Hydrated Nausea & Vomiting: No Nausea or Vomiting Pain: Pt. Denies Any Pain Peripheral Nerve Block: Patient did not receive a nerve block
[2022-11-02 08:30] VITALS: BP 129/78; PULSE 62; RESP 16; TEMP 36.6; O2SAT 94
== END 2022-11-02 08:47 | disposition home or self-care (01) ==
PROVIDERS: PCP Family Medicine; Visit Provider Student in an Organized Health Care Education/Training Program
PROC: 0DJD8ZZ Inspection of Lower Intestinal Tract, Via Natural or Artificial Opening Endoscopic (ICD-10-PCS; CPT 45378; principal; 2022-11-02 07:30)
DX: Z12.11 Encounter for screening for malignant neoplasm of colon (principal); K62.1 Rectal polyp; Z80.0 Family history of malignant neoplasm of digestive organs; K57.30 Diverticulosis of large intestine without perforation or abscess without bleeding; K64.0 First degree hemorrhoids
CPT/HCPCS: 45385; 88305

== ENCOUNTER 2022-11-03 01:05 | Outpatient (CLI) | payer MEDICARE, SELFPAY ==
--- NOTE | 2022-11-03 13:45 | DI.MRI_ITS ---
Exam(s) MR CERVICAL SPINE WO EXAM: MR CERVICAL SPINE WO CLINICAL HISTORY: RADICULOPATHY AFFECTING THE ARM, M54.12 TECHNIQUE: Multiplanar multisequence MRI of the cervical spine was performed without intravenous con trast. COMPARISON: CR XR CERVICAL SPINE COMP 4-5V from 10/26/2022 FINDINGS: CERVICOMEDULLARY JUNCTION: Intact with no evidence of cerebellar tonsillar ectopia. No obvious abnor mality of the odontoid process. No evidence of Chiari 1 malformation. CERVICAL SPINAL CORD: There is no abnormal signal in the cervical spinal cord and no evidence of foca l cord atrophy nor focal cord swelling. OSSEOUS:There are no cervical fractures evident. No significant osseous lesions in the cervical vert ebrae. There is a degenerative subarticular cyst in the posterior superior aspect of C 5 vertebral b heaven, this measuring approximately 5 x 4 millimeters. INDIVIDUAL LEVELS: C2-3: No disc herniation or central canal stenosis. There is significant degenerative change in the left facet joint. Mild left-sided foraminal stenosis. Right facet joints unremarkable. No foramina l stenosis on the right side. C3-4: Normal disc height. Posterior annular bulging with small posterolateral right disc protrusion. There is mild central canal stenosis at this level. No abnormal signal in the cord. There are no Lusc hka joint osteophytes. Moderate degenerative changes in both facet joints. Mild bilateral foraminal s tenosis. C4-5: Normal disc height. Posterior annular bulging and small bilateral Luschka joint osteophytes. Mi ld central spinal canal stenosis. No abnormal signal in the cord at this level. Moderate facet joint degenerative changes bilaterally. Mild bilateral foraminal stenosis. C5-6: Relatively preserved disc height. Mild annular bulging without a dominant disc herniation. Mild central canal stenosis. No abnormal signal in the cord. Moderate degenerative changes in the facet j oints. Mild bilateral foraminal stenosis. C6-7: Mild decreased disc height. Annular bulging. Superimposed posterolateral right disc herniation. No Luschka joint osteophytes. This posterolateral right disc protrusion extends posteriorly 2 millim eters and is approximately 5 millimeters wide. Mild facet joint degenerative changes. No obvious fora efrain stenosis. Mild central canal stenosis. No abnormal signal in the cord. C7-T1: No disc herniation nor central canal stenosis. No facet arthropathy.No foraminal stenosis. IMPRESSION: 1. Multilevel findings as described individually above. Small-moderate size posterolateral right disc protrusion at C6-7 level. 2. Multilevel mild central spinal canal stenosis. No abnormal signal evident in the cervical spinal c ord. 3. Multilevel facet arthropathy and multilevel mild bilateral foraminal stenosis DATA REPOSITORY:
== END 2022-11-03 01:25 ==
LOC: DI 01:06
PROVIDERS: PCP Family Medicine; Visit Provider Family Medicine
DX: M50.223 Other cervical disc displacement at C6-C7 level (principal); M48.02 Spinal stenosis, cervical region
CPT/HCPCS: 72141

== ENCOUNTER → 2022-12-13 10:00 | Outpatient (BNVA) | payer MEDICARE, SELFPAY | PROVIDERS: PCP Nurse Practitioner Family; Referring Provider Nurse Practitioner Family; Visit Provider Nurse Practitioner Adult Health | DX: M54.2 Cervicalgia (principal); M79.601 Pain in right arm; G56.03 Carpal tunnel syndrome, bilateral upper limbs | CPT/HCPCS: 95886; 95910; 99203; 99214 ==

== ENCOUNTER 2023-08-24 12:03 | Outpatient (REF) | payer MEDICARE, SELFPAY ==
[2023-08-24 18:22] LABS: ALT 31 U/L (16-63); AST 27 U/L (15-37); Albumin 4.5 g/dL (3.4-5.0); Alkaline Phosphatase 62 U/L (46-116); Anion Gap 12.6 mmol/L (3-11); BUN 20 mg/dL (7-18); Bilirubin, Total 1.2 mg/dL (0.2-1.0); CO2 24.4 mmol/L (21.0-32.0); CREATININE 1.2 mg/dL (0.70-1.30); Calcium 9.6 mg/dL (8.5-10.1); Calculated LDL 67 mg/dL (<100); Chloride 106 mmol/L (98-107); Cholesterol 139 mg/dL (<200); Estimated GFR 66.28 (mL/min/1.73m2); Glucose 114 mg/dL (74-106); HDL Cholesterol 62 mg/dL (40-60); Potassium 4.6 mmol/L (3.5-5.1); Sodium 143 mmol/L (136-145); Total Protein 8.1 g/dL (6.4-8.2); Triglyceride 53 mg/dL (<150)
[2023-08-24 19:16] LABS: Hemoglobin A1C 5.8 % (<5.7)
== END 2023-08-24 12:04 | disposition home or self-care (01) ==
LOC: NCHCN 12:03
PROVIDERS: PCP Nurse Practitioner Family; Visit Provider Family Medicine
DX: I10 Essential (primary) hypertension (principal); R73.03 Prediabetes; E78.5 Hyperlipidemia, unspecified
CPT/HCPCS: 80053; 80061; 83036

== ENCOUNTER 2023-10-17 13:52 | Outpatient (REF) | payer MEDICARE, SELFPAY ==
--- OUTSIDE RECORDS SUMMARY | 2023-10-17 13:54 | XMS_ITS | Continuity of Care Document ---
Author Name Unknown Organization 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 [address] [place], [place] [address] Encounter Diagnosis Ulnar neuropathy(Discharge Diagnosis) - 01/11/23 Cervical spondylosis(Discharge Diagnosis) - 01/11/23 Lesion of ulnar nerve, unspecified upper limb(Final) - Spondylosis without myelopathy or radiculopathy, cervical region(Final) - Discharge Disposition: Home or Self Care Attending Physician: Guanako Garcia MD Allergies, Adverse Reactions, Alerts Substance Reaction Severity Status ciprofloxacin Moderate Active gabapentin Paranoid reaction Moderate Active pregabalin Paranoid reaction Moderate Active traMADol Unknown Unknown Active Contrast Media 1 Convulsion Severe Active 1Outside Source Comment: CT Contrast Functional Status 01/11/23 Other exposure to Infectious Disease Non e Medications ibuprofen 800 mg oral tablet 800 mg = 1 tab, Oral, TID, 90 EA, TAKE 1 TABLET BY MOUTH THREE TIMES DAILY NEEDED, 0 Refill(s) Start Date: 11/18/22 Status: Ordered losartan 100 mg oral tablet 100 mg = 1 tab, Oral, Daily, 90 EA, TAKE 1 TABLET BY MOUTH EVERY DAY, 0 Refill(s) Start Date: 11/18/22 Status: Ordered Narcan 4 mg/0.1 mL nasal spray 1 sprays, Nasal, Once, may repeat every 2 to 3 minutes until patient responds Start Date: 11/18/22 Status: Ordered Osteo Bi-Flex `1 cap, Oral, Daily, 0 Refill(s) Start Date: 01/11/23 Status: Ordered oxyCODONE 10 mg oral tablet 10 mg = 1 tab, Oral, every 4 hr, PRN pain, maximum of 6 tab a day, 0 Refill(s) Start Date: 11/18/22 Status: Ordered pantoprazole 40 mg oral delayed release tablet 40 mg = 1 tab, Oral, Daily, 0 Refill(s) Start Date: 11/18/22 Status: Ordered rosuvastatin 5 mg oral capsule 5 mg = 1 cap, Oral, Daily, 0 Refill(s) Start Date: 11/18/22 Status: Ordered Tylenol Extra Strength 500 mg oral tablet 1,000 mg = 2 tab, Oral, QID, 1 Unknown, 0 Refill(s) Start Date: 11/18/22 Status: Ordered Problem List Condition Confirmation Course Effective Dates Status Health St atus Informant Abnormal gait Confirmed Active BPH (benign prostatic hyperplasia) Confirmed Active Bradycardia Confirmed Active Carpal tunnel syndrome Confirmed Active Cervical spondylosis Confirmed Active COVID-19 Confirmed Active Crush injury Confirmed Active Dysuria Confirmed Active Fatigue Confirmed Active History of pelvic fracture Confirmed Active Hearing deficit Confirmed Active Hypertension Confirmed Active Injury of lumbosacral plexus Confirmed Active Insomnia Confirmed Active Arthralgia Confirmed Active Muscle weakness Confirmed Active Degenerative joint disease 1 Confirmed Active Right upper limb pain Confirmed Active Paresthesia Confirmed Active Seasonal allergies Confirmed Active Lumbar spinal stenosis Confirmed Active Ulnar neuropathy Confirmed Active 1AC joint Procedures Procedure Date Related Diagnosis Body Site Status Incision AND drainage 1 08/16/15 C ompleted Carpal tunnel release Com pleted Colonoscopy Completed ORIF - Open reduction and in ternal fixation of fracture 2 Completed ORIF - Open reduction and in ternal fixation of fracture 3 Completed Procedure on elbow Comple amaya Procedure on facial bone 4 Completed Urethral operation 5 Comp leted 1hematoma 2right wrist 3left foot 4repair of facial and jaw fractures 5reconstruction surgery for accident in 2013 Vital Signs Most recent to oldest [Reference Range]: 1 Temperature Tympanic [36.6-37.9 Deg C] 3 5.9 Deg C *LOW* (01/11/23 9:13 AM) Peripheral Pulse Rate [60-100 bpm] 71 bp m (01/11/23 9:13 AM) Respiratory Rate [12-24 br/min] 18 br/mi n (01/11/23 9:13 AM) Blood Pressure [90-140/60-90 mmHg] 126/7 8mmHg (01/11/23 9:13 AM) Weight 88.99 kg (01/11/23 9:13 AM) Weight Measured (lbs) 196.189 lb (01/11/23 9:13 AM) Wheeler Body Weight Calculated 68.4 kg (01/11/23 9:13 AM) Height 172.72 cm (01/11/23 9:13 AM) Height/Length Measured (inches) 68 inch (01/11/23 9:13 AM) BSA Measured 2.07 m2 (01/11/23 9:13 AM) Body Mass Index 29.83 kg/m2 (01/11/23 9:13 AM) Social History Social History Type Response Tobacco Former tobacco user Tobacco Use:. 1 Sex 1smoked for 10 years. Quit 26 years ago Physician Outpatient Note * Guanako Garcia MD: PERFORM Event Display: Office Clinic Note Physician Authored Date: [id number] JOCE ESPINOSA :1955 Age:68 years Sex:Male Visit Date:2023 Primary Care Physician: Alcira Heller Chief Complaint Cervical Pain Discuss surgical options History of Present Illness Images reviewed with the patient. ??After a big snowstorm in October the patient developed??significant pain in the neck to the point where he??could not even carry out his activities of daily living.?? In addition??he started having more numbness that radiated down the right arm.?? He had known??diagnosis of carpal tunnel syndrome and ulnar neuropathy on that side.?? Stabling nature of the??pain the patient had a radiographic work-up.?? This showed significant problems in the neck. ?? Patient is pleased to report that pretty much all of his neck pain is gone.?? He feels normal againin his neck.?? The thing that??is abnormal is that he still has persistent and waxing and waning numbness that radiates from the shoulder all the way down the arm to the??third fourth and fifth fingers of the right hand.?? He states that this is not particular bothersome??but it is alarming.?? 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 The patient's right arm is abnormal from his old injury.?? Apparently??he had a bicipital tendon injury on the right side??and the arm has never been right for years. ?? The patient recently had EMG and nerve conduction studies and he was told that he has??ulnar neuropathy??and carpal tunnel syndrome??worse on the right.?? He does not believe that he is losing anydexterity in his fingers nor does he feel he is lost any balance. Physical Exam Vitals & Measurements T:??35.9?C ??(Tympanic)?? HR:??71??(Peripheral)?? RR:??18?? BP:??126/78?? SpO2:??98%?? HT:??172.72??cm?? WT:??88.99??kg?? BMI:??29.83?? BSA:??2.07?? Patient is alert pleasant individual who looks??very comfortable. Range of motion of the neck is full.?? On extension with lateral bending towards the right??the patient can??precipitate a small amount of numbness in the right arm. Motor examination shows slight weakness of the bicep??muscle on the right side.?Exam is consistent with??biceps tendon rupture.?? Power is full on the left side??throughout the left upper extremity. Tricep??on the right??shows??4/5 power Wrist extensor on the right shows 4+/5 power Intrinsic hand muscle strength??is 5/5 bilaterally. Assessment/Plan 1.??Ulnar neuropathy??G56.20 Apparently EMG by report??has confirmed the presence of ulnar neuropathy and carpal tunnel syndrome.?? I have not seen this report??the patient is quite clear as to what he was told during the??diagnostic work-up.?? He does not have any neck pain at this point.?? There are no hard neurologic findings that warrant??recommendation for multilevel cervical fusion.?? The safest treatment option at this point would be to treat the carpal tunnel syndrome or the ulnar neuropathy.?? If this solves the problem with numbness??then he would not need any further treatment??with regard to his neck. ? Plan: Refer to orthopedics for ulnar neuropathy 2.??Cervical spondylosis??M47.812 Patient does have cervical spondylosis with moderate spinal stenosis at the C4-5 and C6-7 levels.??He does not have any myelopathic findings.?? He was told that he should monitor his strength??in the right tricep. ??The??method of how to do this was explained to him.?? Obviously if he has increased pain or numbness after having treatment of his ulnar nerve??then??he could certainly come back forreevaluation.?? He was explicitly told however that if he notices that his tricep muscle becomes weaker??that she should call for reevaluation. Problem List/Past Medical History Ongoing Abnormal gait Arthralgia BPH (benign prostatic hyperplasia) Bradycardia Carpal tunnel syndrome Cervical spondylosis COVID-19 Crush injury Degenerative joint disease Dysuria Fatigue Hearing deficit History of pelvic fracture Hypertension Injury of lumbosacral plexus Insomnia Lumbar spinal stenosis Muscle weakness Paresthesia Right upper limb pain Seasonal allergies Ulnar neuropathy Historical No qualifying data Procedure/Surgical History ???Incision AND drainage (08/17/2015)???Carpal tunnel release???Colonoscopy???ORIF - Open reductionand internal fixation of fracture???ORIF - Open reduction and internal fixation of fracture???Procedure on elbow???Procedure on facial bone???Urethral operation Medications ibuprofen 800 mg oral tablet, 800 mg= 1 tab, Oral, TID losartan 100 mg oral tablet, 100 mg= 1 tab, Oral, Daily Narcan 4 mg/0.1 mL nasal spray, 1 sprays, Nasal, Once Osteo Bi-Flex, `1 cap, Oral, Daily oxyCODONE 10 mg oral tablet, 10 mg= 1 tab, Oral, every 4 hr, PRN pantoprazole 40 mg oral delayed release tablet, 40 mg= 1 tab, Oral, Daily rosuvastatin 5 mg oral capsule, 5 mg= 1 cap, Oral, Daily Tylenol Extra Strength 500 mg oral tablet, 1000 mg= 2 tab, Oral, QID Allergies Contrast Media??(Convulsion) ciprofloxacin gabapentin??(Paranoid reaction) pregabalin??(Paranoid reaction) traMADol??(Unknown) Social History Alcohol Never Electronic Cigarette/Vaping Electronic Cigarette Use: Unknown/not obtained. Tobacco Former tobacco user Tobacco Use:.- Comments: smoked for 10 years. Quit 26 years ago Diagnostic Results Diagnostic Study Interpretation: MRI of the cervical spine??shows spondylitic abnormalities with disc osteophyte complexes producing??moderate??spinal stenosis??and neuroforaminal narrowing.?? This is worse at the??C4-5 level??and the C6-7 level.?? The neuroforamen at the C7-T1 level are normal.?? There are no changes in the spinal cord at any level.?? There is also??neuroforaminal narrowing due to facet hypertrophy??at the C3-4??and even the C2-3 level. Electronically Signed on 01/11/23 09:31 AM Guanako Garcia MD Patient Care team information Care Team Personnel Name: Alcira Heller Position: No Access Member Role: Primary Care Physician Address: Address: [address] [place] [id number] [place] Care Team Related Persons Name: MIKAL ESPINOSA Address: Home [address] [place] [address] [place] [address] [place] Name: GERSON SAMUEL Address: Home [address] [place] [address] [place]
--- OUTSIDE RECORDS SUMMARY | 2023-10-17 13:54 | XMS_ITS | Continuity of Care Document ---
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 Name Role Phone AMAN LAUREN Primary Care Physician Encounter [facility] NBR [id number] Date(s): 03/20/23 - 03/20/[address] [phone] Encounter Diagnosis Carpal tunnel syndrome of right wrist(Discharge Diagnosis) - 03/13/23 Ulnar neuropathy(Discharge Diagnosis) - 03/13/23 Discharge Disposition: Home f/u External Provider Attending Physician: Fili Nam MD Admitting Physician: Fili Nam MD Referring Physician: Fili Nam MD Allergies, Adverse Reactions, Alerts Substance Reaction Severity Status ciprofloxacin Moderate Active gabapentin Paranoid reaction Moderate Active pregabalin Paranoid reaction Moderate Active traMADol Unknown Unknown Active Contrast Media 1 Convulsion Severe Active 1Outside Source Comment: CT Contrast Assessment and Plan Future Appointments Functional Status 03/20/23 Anti-Embolism Device Activity: Applied Anti-Embolism Site Condition: No complic ations 03/20/23 Other exposure to Infectious Disease Non e Medications losartan 100 mg oral tablet 100 mg = 1 tab, Oral, every night at bedtime, 90 EA, TAKE 1 TABLET BY MOUTH EVERY DAY, 0 Refill(s) Start Date: 11/18/22 Status: Ordered Osteo Bi-Flex `1 cap, Oral, every night at bedtime, 0 Refill(s) Start Date: 01/11/23 Status: Ordered pantoprazole 40 mg oral delayed release tablet 40 mg = 1 tab, Oral, Daily, 0 Refill(s) Start Date: 11/18/22 Status: Ordered rosuvastatin 5 mg oral capsule 5 mg = 1 cap, Oral, every night at bedtime, 0 Refill(s) Start Date: 11/18/22 Status: Ordered Tylenol Extra Strength 500 mg oral tablet 1,000 mg = 2 tab, Oral, QID, PRN as needed for pain, 1 Unknown, 0 Refill(s) Start Date: 11/18/22 Status: Ordered Problem List Condition Confirmation Course Effective Dates Status Health St atus Informant BPH (benign prostatic hyperplasia) Confirmed Active Bradycardia Confirmed Active Carpal tunnel syndrome Confirmed Active Carpal tunnel syndrome of right wrist Confirmed Active Cervical spondylosis Confirmed Active Crush injury Confirmed Active Diverticular disease Confirmed Active Dysuria Confirmed Active Fatigue Confirmed Active Fit full full dentures Confirmed Active History of pelvic fracture Confirmed Active Hearing deficit Confirmed Active History of COVID-19 1, 2 Confirmed Active Hypertension Confirmed Active Injury of lumbosacral plexus Confirmed Active Insomnia Confirmed Active Arthralgia Confirmed Active Muscle weakness Confirmed Active Degenerative joint disease 3 Confirmed Active Right upper limb pain Confirmed Active Paresthesia 4 Confirmed Active Prediabetes Confirmed Active Seasonal allergies Confirmed Active Lumbar spinal stenosis Confirmed Active Ulnar neuropathy Confirmed Active Urethral stricture 5 Confirmed Active 1pt states mod sx 2asymptomatic 3AC joint 4bilat hands 5h/o Procedures Procedure Date Related Diagnosis Body Site Status Carpal Tunnel Release (Right) 1 03/20/23 Completed Transposition Ulna (Right) 2 03/20/23 Completed Incision AND drainage 3 08/16/15 C ompleted Carpal tunnel release Com pleted Colonoscopy Completed ORIF - Open reduction and in ternal fixation of fracture 4 Completed ORIF - Open reduction and in ternal fixation of fracture 5 Completed Procedure on elbow Comple amaya Procedure on facial bone 6 Completed Urethral operation 7 Comp leted 1auto-populated from documented surgical case 2auto-populated from documented surgical case 3hematoma 4right wrist 5left foot 6repair of facial and jaw fractures 7reconstruction surgery for accident in 2013 Vital Signs Most recent to oldest [Reference Range]: 1 2 3 Temperature Temporal Artery [36-38 Deg C] 36.0 Deg C (03/20/23 12:57 PM) 36.0 Deg C (03/20/23 11:56 AM) 36.5 Deg C (03/20/23 9:24 AM) Temperature Temporal Artery (DegF) [97.3-100 Deg F] 96.8 Deg F *LOW* (03/20/23 11:56 AM) 97.7 Deg F (03/20/23 9:24 AM) Peripheral Pulse Rate [60-100 bpm] 50 bpm *LOW* (03/20/23 12:55 PM) 60 bpm (03/20/23 12:30 PM) 55 bpm *LOW* (03/20/23 12:15 PM) Respiratory Rate [12-24 br/min] 17 br/min (03/20/23 12:13 PM) Blood Pressure [90-140/60-90 mmHg] 138/74mmHg (03/20/23 12:55 PM) 128/114mmHg (03/20/23 12:30 PM) 108/92mmHg (03/20/23 12:15 PM) Mean Arterial Pressure, Cuff [65-140 mmHg] 95 mmHg (03/20/23 12:55 PM) 119 mmHg (03/20/23 12:30 PM) 97 mmHg (03/20/23 12:15 PM) Mean Arterial Pressure Cuff 91 mmHg (03/20/23 12:55 PM) 121 mmHg (03/20/23 12:30 PM) 99 mmHg (03/20/23 12:15 PM) Blood Pressure Location Left arm (03/20/23 12:55 PM) Left arm (03/20/23 12:30 PM) Left arm (03/20/23 12:15 PM) Blood Pressure Method Automatic (03/20/23 12:55 PM) Automatic (03/20/23 12:30 PM) Automatic (03/20/23 12:15 PM) Weight 86.000 kg (03/15/23 1:52 PM) Weight Dosing 86.000 kg (03/15/23 1:52 PM) Height 173.000 cm (03/15/23 1:52 PM) Height/Length Dosing 173.000 cm (03/15/23 1:52 PM) Social History Social History Type Response Tobacco Former tobacco user Tobacco Use:. 1 Sex 1smoked for 10 years. Quit 26 years ago Procedure note * Shoaib Jang: PERFORM Event Display: Procedure Note Authored Date: [id number] 03/20/2023 10:11:38 Surgical Procedure: ??CTR Indication: Surgeon requested for post-op pain management ??Place of service: [facility] TIME OUT: Block type: Supraclavicular Side: Right Patient position: Semi-flowlers Pre-medication: _ Level of sedation: Awake Monitors: Pulse oximetery Oxygen: _ Prep done using chloroprep, sterile drapes and sterile gloves Injection made keeping needle tip and spread of anesthetic in ultrasound view using 22g 50mm??needle.?? Needle depth of 2 cm Negative aspirate q5 mL. No heme. No parethsesia. Local anesthetic: Ropivicaine 0.5% 30 ml Adjuncts: _ Electronically Signed on 03/20/23 10:12 AM Shoaib Jang Patient Care team information Care Team Personnel Name: AMAN LAUREN Position: No Access Member Role: Primary Care Physician Address: Address: [address] [place] [phone] [place] Care Team Related Persons Name: MIKAL ESPINOSA Address: Home [address] [place] [address] [address] [place] [id number] [facility] Name: GERSON SAMUEL Address: Home [address] [place] [phone] [facility] Name: GERSON SAMUEL Address: Home [address] [place] [id number] [facility]
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
--- OUTSIDE RECORDS SUMMARY | 2023-10-17 13:54 | XMS_ITS | Continuity of Care Document ---
Author Name Unknown Organization [facility] Address [address] [place] [address] Care Team Providers Care Beef Breaker Name Role Phone Pina Alcira Hui Primary Care Physician Encounter [facility] NBR [id number] Date(s): 02/07/23 - 02/07/23 [facility] [address] [place] [address] [place] Encounter Diagnosis Carpal tunnel syndrome(Discharge Diagnosis) - 02/07/23 Ulnar neuropathy(Discharge Diagnosis) - 02/07/23 Discharge Disposition: Home or Self Care Attending Physician: Fili Nam MD Allergies, Adverse Reactions, Alerts Substance Reaction Severity Status ciprofloxacin Moderate Active gabapentin Paranoid reaction Moderate Active pregabalin Paranoid reaction Moderate Active traMADol Unknown Unknown Active Contrast Media 1 Convulsion Severe Active 1Outside Source Comment: CT Contrast Functional Status 02/07/23 Other exposure to Infectious Disease Non e [...] Most recent to oldest [Reference Range]: 1 Peripheral Pulse Rate [60-100 bpm] 88 bp m (02/07/23 7:51 AM) Blood Pressure [90-140/60-90 mmHg] 118/7 2mmHg (02/07/23 7:51 AM) Weight 86.18 kg (02/07/23 7:51 AM) Weight Measured (lbs) 189.994 lb (02/07/23 7:51 AM) Height 170.18 cm (02/07/23 7:51 AM) Height/Length Measured (inches) 67 inch (02/07/23 7:51 AM) BSA Measured 2.02 m2 (02/07/23 7:51 AM) Body Mass Index 29.76 kg/m2 (02/07/23 7:51 AM) Social History Social History Type Response Tobacco Former tobacco user Tobacco Use:. 1 Sex 1smoked for 10 years. Quit 26 years ago Hospital Discharge Instructions Follow Up Care 01/16/2023 11:59:31 With:Surgery Address: When: Unknown Physician Outpatient Note * Fili Nam MD: PERFORM Event Display: Office Clinic Note Physician Authored Date: [id number] FRANCISCA JOCE A :1955 Age:68 years Sex:Male Visit Date:02/07/2023 Primary Care Physician: Alcira Heller Chief Complaint Bilateral upper extremity numbness and tingling History of Present Illness Please send a copy this note to Alcira Heller. ?? 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 ??He is seen today at the kindrequest of Alcira Heller??for evaluation of a 6-year history of??bilateral upper extremity numbnessand tingling.?? He was seen previously by Dr. Garcia who found him to have moderate cervical spondylosis and stenosis at C4-5 and C6-7. ??However, Dr. Garcia felt that??his??upper extremity numbness and tingling was more related to??peripheral??nerve entrapment??including cubital tunnel syndrome and carpal tunnel syndrome bilaterally.?? He did note that the patient had weakness of his??right tri ceps??with numbness and tingling??to the??dorsum??of his??forearm??and into his hand. ?? The patient states that??his biggest problem is numbness and tingling??involving the radial 3 digits of his hand, and less so involving the??ulnar 2 digits. ??His symptoms have progressed to the point that??it is waking him up.?? He has not found anti-inflammatories to be helpful.?? His symptomshave resulted??in progressive weakness of bilateral hands, right greater than left. ??He has also noticed decrease??dexterity with fine motor movements. ??This is now interfering with his activities.?? He has performed an HEP and has used braces which initially helped,??although more recently??he has been??getting numbness and tingling even while using braces. Review of Systems Review of systems is significant for dysuria, fatigue,??hearing difficulties, hypertension, insomnia,??seasonal allergies, BPH, bradycardia, and bilateral upper??extremity numbness??and tingling. Physical Exam Vitals & Measurements HR:??88??(Peripheral)?? BP:??118/72?? SpO2:??98%?? HT:??170.18??cm?? WT:??86.18??kg?? BMI:??29.76?? BSA:??2.02?? Right upper extremity demonstrates decreased sensation to light touch??about the volar aspect of his radial 3 digits??greater than the ulnar 2 digits. ??He also has??a tingling sensation about the dorsal aspect of his forearm into the dorsum of his hand. ??He demonstrates mild??thenar eminence atrophy although the hypothenar eminence appears to be preserved. ??No swelling or effusion of the wristis present.?? Range of motion of the wrist??demonstrates extension to 75 degrees??with flexion to??55 degrees which is??symmetric with the contralateral side.?? Compression test and Phalen's test arepositive??and reproduce numbness and tingling into the radial 3 digits of the hand. ??Tinel's sign is equivocal.?? The right elbow demonstrates??flexion to 110 degrees which is symmetric with the left.?? Elbow range of motion??is otherwise normal??to??extension, supination, and pronation.?? The ulnar nerve is palpated to be appropriately located behind the??medial humeral epicondyle??without evide nce of instability with range of motion.?? Flexion test is positive at approximately 15 seconds.?? Tinel sign is positive and reproduces numbness and tingling into??the??ulnar 2 digits of the hand. ?? Left upper extremity demonstrates decreased sensation to light touch??about the volar aspect of his radial 3 digits??greater than the ulnar 2 digits.?He demonstrates minimal??thenar eminence atrophy although the hypothenar eminence appears to be preserved. ??No swelling or effusion of the wrist is present.?? Range of motion of the wrist??demonstrates extension to 75 degrees??with flexion to??55 degrees which is??symmetric with the contralateral side.?? Compression test and Phalen's test are positive??and reproduce numbness and tingling into the radial 3 digits of the hand. ??Tinel's sign is equivocal.?? The right elbow demonstrates??flexion to 110 degrees which is symmetric with the left.?? Elbow range of motion??is otherwise normal??to??extension, supination, and pronation.?? The ulnar nerve is palpated to be appropriately located behind the??medial humeral epicondyle??without evidence of instability with range of motion.?? Flexion test is positive at approximately 15 seconds.?? Tinel sign is positive and reproduces numbness and tingling into??the??ulnar 2 digits of the hand. Assessment/Plan 1.??Carpal tunnel syndrome??G56.00 2.??Ulnar neuropathy??G56.20 The patient demonstrates evidence of bilateral upper extremity numbness and tingling secondary to??EMG evident??moderate??carpal tunnel??syndrome??as well as??clinically evident??cubital tunnel syndrome.?? He believes his right side is worse than his left.?? The treatment options were discussed with the patient was been on a course of??nonoperative management without relief.?? The patient opted to proceed with surgical management. ??The procedure of right wrist carpal tunnel release, tenosynovectomy,??and right??elbow cubital tunnel release with possible ulnar nerve transposition was described in detail to the patient as well as the associated risks, benefits, alternatives, possible complications, and postoperative course. ??In addition, it was emphasized to the patient??that as??he has??numbness and tingling??about the dorsal forearm extending into the hand dorsum, this is not consistent with either carpal??or cubital tunnel syndrome??and that this surgery may not address??what may be related to a more proximal issue in his cervical spine. ??The patient verbalized understanding and all questions were answered. ?? We went over use of narcotics postoperatively. ??We will use the smallest dose for the shortest period of time for their acute postoperative pain only. ??This will be in addition to icing, Tylenol, physical therapy, and bracing. ??We will obtain consent and do a risk assessment tool. ??We will alsoneed to check the PDMP as needed. ?? I personally reviewed the patient's referral, outside consultation notes, previous radiographic images and results, and relevant tests. ?? Thank you for the courtesy of this referral. Follow Up Instructions With When Contact Information Surgery Additional Instructions: Problem List/Past Medical History Ongoing Abnormal gait [...] years ago Diagnostic Results Diagnostic Study Interpretation: EMG of bilateral upper extremities performed by Dr. Ramos??on 12/13/2022??demonstrates??moderate bilateral carpal tunnel syndrome??with no evidence of cervical radiculopathy.?? No comment was made regarding possible cubital tunnel syndrome. Electronically Signed on 02/07/23 04:15 PM Fili Nam MD Patient Care team information Care Team Personnel Name: Alcira Heller Position: No Access Member Role: Primary Care Physician Address: Address: [address] [place] [phone] Care Team Related Persons Name: ANDILIATMIKAL Address: Home [address] [place] [address] [place] [address] [place] Name: GERSON SAMUEL Address: Home [address]
--- OUTSIDE RECORDS SUMMARY | 2023-10-17 13:54 | XMS_ITS | Continuity of Care Document ---
Author Name Unknown Organization [facility] Ambulatory Clinics Address [address] [place] [address] Care Team Providers Care Accounting Software Specialist Name Role Phone Alcira Heller Primary Care Physician [phone] Encounter [facility] NBR [id number] Date(s): 12/22/22 - 12/22/22 [facility] Ambulatory Clinics [address] [place], [place] [address] Encounter Diagnosis Cervicalgia(Final) - Pain in right shoulder(Final) - Pain in right arm(Final) - Discharge Disposition: Home or Self Care Attending Physician: Kamini Herring DO Referring Physician: Tonya Spring APRN-DIRECTOR OF PROGRAMMING Allergies, Adverse Reactions, Alerts Substance Reaction Severity Status ciprofloxacin Moderate Active gabapentin Paranoid reaction Moderate Active pregabalin Paranoid reaction Moderate Active traMADol Unknown Unknown Active Contrast Media 1 Convulsion Severe Active 1Outside Source Comment: CT Contrast Functional Status 12/22/22 Other exposure to Infectious Disease Non e [...] 1 Temperature Tympanic [36.6-37.9 Deg C] 3 6.2 Deg C *LOW* (12/22/22 3:01 PM) Peripheral Pulse Rate [60-100 bpm] 76 bp m (12/22/22 3:01 PM) Respiratory Rate [12-24 br/min] 16 br/mi n (12/22/22 3:01 PM) Blood Pressure [90-140/60-90 mmHg] 148/7 6mmHg *HI* (12/22/22 3:01 PM) Social History Social History Type Response Smoking Status Not obtained due to cognitive impairment entered on: 11/18/22 Sex Patient Care team information Care Team Personnel Name: Alcira Heller Position: No Access Member Role: Primary Care Physician Address: Address: [address] [place] [phone] Care Team Related Persons Name: MIKAL ESPINOSA Address: Home [address] [place], [place] [id number] [place] [address] Name: GERSON SAMUEL Address: Home [address] [place], [place] [id number] [place] [address]
--- OUTSIDE RECORDS SUMMARY | 2023-10-17 13:54 | XMS_ITS | Continuity of Care Document ---
Author Name Unknown Organization [facility] Address [address] [place] [address] Care Team Providers Care Supervisor Lens Generating Name Role Phone AMAN LAUREN Primary Care Physician [phone] Encounter [facility] NBR [id number] Date(s): 03/28/23 - 03/28/23 [facility] [address] [place] [address] [place] Encounter Diagnosis Carpal tunnel syndrome of right wrist(Discharge Diagnosis) - 03/28/23 Ulnar neuropathy(Discharge Diagnosis) - 03/28/23 Discharge Disposition: Home or Self Care Attending Physician: REYNALDO Jacobsen Allergies, Adverse Reactions, Alerts Substance Reaction Severity Status ciprofloxacin Moderate Active gabapentin Paranoid reaction Moderate Active pregabalin Paranoid reaction Moderate Active traMADol Unknown Unknown Active Contrast Media 1 Convulsion Severe Active 1Outside Source Comment: CT Contrast Assessment and Plan Future Appointments Functional Status 03/28/23 Other exposure to Infectious Disease Non e Medications aspirin 325 mg oral tablet 325 mg = 1 tab, Oral, Daily, # 30 tab, 0 Refill(s) Start Date: 03/28/23 Status: Ordered losartan 100 mg oral tablet [...] Most recent to oldest [Reference Range]: 1 Weight 86 kg (03/28/23 7:51 AM) Weight Measured (lbs) 189.597 lb (03/28/23 7:51 AM) Height 173 cm (03/28/23 7:51 AM) Height/Length Measured (inches) 68.11 in ch (03/28/23 7:51 AM) BSA Measured 2.03 m2 (03/28/23 7:51 AM) Body Mass Index 28.73 kg/m2 (03/28/23 7:51 AM) Social History Social History Type Response Tobacco Former tobacco user Tobacco Use:. 1 Sex 1smoked for 10 years. Quit 26 years ago Physician Outpatient Note * REYNALDO Jacobsen: PERFORM Event Display: Office Clinic Note Physician Authored Date: [id number] JOCE ESPINOSA :1955 Age:68 years Sex:Male Visit Date:03/28/2023 Primary Care Physician: AMAN LAUREN Chief Complaint RIGHT CTR, ELBOW History of Present Illness The patient comes in today status post surgery on??03/20/2023. ??He had a right open carpal tunnel release with tenosynovitis and a right elbow cubital tunnel??release with ulnar nerve transposition.?? In general he is doing well. ??He still has numbness and tingling??in his second third and fourth digit but it is??better. ??He is no longer getting increased pain.?? His elbow is a little bit sore from surgery but??it is manageable.?? The patient denies any fevers, chills, chest pain, shortness of breath, numbness or tingling.?He does have carpal tunnel syndrome on the left side??and??would like to have that completed before winter but will have to schedule that. Review of Systems Other than the H&P is unremarkable Physical Exam Vitals & Measurements HT:??173??cm?? WT:??86??kg?? BMI:??28.73?? BSA:??2.03?? General: Alert and oriented x3, pleasant cooperative, in no acute distress, appears to be their stated age, is generally fit appearing.? Right hand: His incision is clean and dry, well approximated, no signs of bleeding or discharge. ??Sensation to light touch is mildly decreased in the second third and fourth digits. ??It is intact in his first and fifth digit. ??Range of motion of his fingers is full. ??Skin distally is pink warm and dry. ?? Right elbow: His incision is well approximated, clean and dry. ??He has full extension and full flexion.?? No effusion or erythema. ??No ecchymosis. Assessment/Plan 1.??Carpal tunnel syndrome of right wrist??G56.01 2.??Ulnar neuropathy??G56.20 The patient is doing well status post the aforementioned procedure. ??I would like him to avoid heavy lifting with his right upper extremity for the next 5 weeks.?? In addition he will protect his??hand incision with the brace until the incision is well-healed. ??He will continue with his aspirin until he is back to his normal activity level.?? [facility]He will call us to schedule that. Problem List/Past Medical History Ongoing Arthralgia BPH (benign prostatic hyperplasia) Bradycardia Carpal tunnel syndrome Carpal tunnel syndrome of right wrist Cervical spondylosis Crush injury Degenerative joint disease Diverticular disease Dysuria Fatigue Fit full full dentures Hearing deficit History of COVID-19 History of pelvic fracture Hypertension Injury of lumbosacral plexus Insomnia Lumbar spinal stenosis Muscle weakness Paresthesia Prediabetes Right upper limb pain Seasonal allergies Ulnar neuropathy Urethral stricture Historical Abnormal gait Procedure/Surgical History ???Carpal Tunnel Release (Right) (03/20/2023)???Transposition Ulna (Right) (03/20/2023)???Incision AND drainage (08/17/2015)???Carpal tunnel release???Colonoscopy???ORIF - Open reduction and internalfixation of fracture???ORIF - Open reduction and internal fixation of fracture???Procedure on elbow???Procedure on facial bone???Urethral operation Medications aspirin 325 mg oral tablet, 325 mg= 1 tab, Oral, Daily losartan 100 mg oral tablet, 100 mg= 1 tab, Oral, every night at bedtime Osteo Bi-Flex, `1 cap, Oral, every night at bedtime pantoprazole 40 mg oral delayed release tablet, 40 mg= 1 tab, Oral, Daily rosuvastatin 5 mg oral capsule, 5 mg= 1 cap, Oral, every night at bedtime Tylenol Extra Strength 500 mg oral tablet, 1000 mg= 2 tab, Oral, QID, PRN Allergies Contrast Media??(Convulsion) ciprofloxacin gabapentin??(Paranoid reaction) pregabalin??(Paranoid reaction) traMADol??(Unknown) Social History Alcohol Never Electronic Cigarette/Vaping Electronic Cigarette Use: Unknown/not obtained. Substance Use Never Tobacco Former tobacco user Tobacco Use:.- Comments: smoked for 10 years. Quit 26 years ago Electronically Signed on 03/28/23 08:46 AM REYNALDO Jacobsen Electronically Signed on 03/28/23 09:30 AM Fili Nam MD Patient Care team information Care Team Personnel Name: AMAN LAUREN Position: No Access Member Role: Primary Care Physician Address: Address: [address] [place] [id number] [place] Care Team Related Persons Name: MIKAL ESPINOSA Address: Home [address] [place] [address] [address] [place], [place] [id number] [facility] Name: GERSON SAMUEL Address: Home [address] [place] [phone] [facility] Name: GERSON SAMUEL Address: [place] [address] [place] [id number] [facility]
== END 2023-10-17 13:53 | disposition home or self-care (01) ==
LOC: NCHCN 13:52
PROVIDERS: PCP Nurse Practitioner Family; Visit Provider Family Medicine
DX: N39.0 Urinary tract infection, site not specified (principal)
CPT/HCPCS: 87077; 87086; 87186

== ENCOUNTER 2024-08-09 15:43 | Outpatient (REF) | payer MEDICARE, SELFPAY ==
[2024-08-09 17:55] LABS: Bacteria Few HPF (Negative); C & S Indicated? C&S Done As Ordered; Casts Negative LPF (Negative); Crystals Negative HPF (Negative); Epithelial Cells Rare HPF (Negative); Mucus Negative (Negative); Other Cells Rare Renal (Negative); RBC 0-2 HPF (0-2)
== END 2024-08-09 15:44 | disposition home or self-care (01) ==
LOC: LBN 15:43
PROVIDERS: PCP Nurse Practitioner Family; Visit Provider Physician Assistant Medical
DX: R30.0 Dysuria (principal); B96.29 Other Escherichia coli [E. coli] as the cause of diseases classified elsewhere
CPT/HCPCS: 87077; 81015; 87086; 87186

== ENCOUNTER 2024-08-22 15:38 | Outpatient (REF) | payer MEDICARE, SELFPAY ==
[2024-08-22 19:28] LABS: ALT 48 U/L (16-63); AST 39 U/L (15-37); Albumin 4.5 g/dL (3.4-5.0); Alkaline Phosphatase 66 U/L (46-116); Anion Gap 12.5 mmol/L (3-11); BUN 28 mg/dL (7-18); Bilirubin, Total 1.14 mg/dL (0.2-1.0); CO2 23.5 mmol/L (21.0-32.0); CREATININE 1.1 mg/dL (0.70-1.30); Calcium 9.2 mg/dL (8.5-10.1); Chloride 103 mmol/L (98-107); Estimated GFR 73.12 (mL/min/1.73m2); Glucose 92 mg/dL (74-106); Potassium 4.3 mmol/L (3.5-5.1); Sodium 139 mmol/L (136-145); Total Protein 7.7 g/dL (6.4-8.2)
[2024-08-22 21:12] LABS: Hemoglobin A1C 5.5 % (<5.7)
[2024-08-23 18:04] LABS: PSA, Diagnostic 2.5 ng/mL (<=4.5)
== END 2024-08-22 15:39 | disposition home or self-care (01) ==
LOC: NCHCN 15:38
PROVIDERS: PCP Nurse Practitioner Family; Visit Provider Family Medicine
DX: Z00.00 Encounter for general adult medical examination without abnormal findings (principal); N40.0 Benign prostatic hyperplasia without lower urinary tract symptoms; I10 Essential (primary) hypertension
CPT/HCPCS: 80053; 83036; 84153

== ENCOUNTER 2024-08-31 19:21 | Outpatient (REF) | payer MEDICARE, SELFPAY ==
[2024-08-31 19:42] LABS: Bacteria Rare HPF (Negative); C & S Indicated? C&S Done As Ordered; Casts Negative LPF (Negative); Crystals Negative HPF (Negative); Epithelial Cells Rare HPF (Negative); Mucus Negative (Negative); RBC Negative HPF (0-2); WBC >50 HPF (0-5)
== END 2024-08-31 19:22 | disposition home or self-care (01) ==
LOC: LBN 19:21
PROVIDERS: PCP Nurse Practitioner Family; Visit Provider Physician Assistant Medical
DX: R10.9 Unspecified abdominal pain (principal)
CPT/HCPCS: 81015; 87086

== ENCOUNTER 2025-02-24 17:25 | Outpatient (REF) | payer MEDICARE, SELFPAY | END 2025-02-24 17:26 | disposition home or self-care (01) | LOC: LBN 17:25 | PROVIDERS: PCP Nurse Practitioner Family; Visit Provider Nurse Practitioner Family | DX: N30.01 Acute cystitis with hematuria (principal); B96.29 Other Escherichia coli [E. coli] as the cause of diseases classified elsewhere | CPT/HCPCS: 87077; 87086; 87186 ==

== ENCOUNTER 2025-08-28 16:03 | Outpatient (REF) | payer MEDICARE, SELFPAY ==
[2025-08-28 18:46] LABS: ALT 36 U/L (16-63); AST 25 U/L (15-37); Albumin 4.2 g/dL (3.4-5.0); Alkaline Phosphatase 67 U/L (46-116); Anion Gap 11.0 mmol/L (3-11); BUN 17 mg/dL (7-18); Bilirubin, Total 1.3 mg/dL (0.2-1.0); CO2 25.0 mmol/L (21.0-32.0); Calcium 9.1 mg/dL (8.5-10.1); Chloride 103 mmol/L (98-107); Estimated GFR 92.45 (mL/min/1.73m2); Glucose 100 mg/dL (74-106); Potassium 4.3 mmol/L (3.5-5.1); Sodium 139 mmol/L (136-145); Total Protein 7.3 g/dL (6.4-8.2)
[2025-08-28 19:35] LABS: Hemoglobin A1C 5.8 % (<5.7)
[2025-08-29 18:19] LABS: PSA, Diagnostic 2.0 ng/mL (<=4.5)
== END 2025-08-28 16:04 | disposition home or self-care (01) ==
LOC: NCHCN 16:03
PROVIDERS: PCP Nurse Practitioner Family; Visit Provider Family Medicine
DX: N40.0 Benign prostatic hyperplasia without lower urinary tract symptoms (principal); R73.03 Prediabetes; I10 Essential (primary) hypertension
CPT/HCPCS: 80053; 83036; 84153

== ENCOUNTER → 2025-10-06 03:39 | Outpatient (CLI) | payer MEDICARE, SELFPAY ==
--- NOTE | 2025-10-06 | DI.NM_ITS ---
APPROVED REPORT Exam: Exercise Treadmill Patient Location: Out-Patient Room/Bed: Stress Nurse: Adele Conner RN Ordering Provider:AMAN TURNERMEHDI, Contact Number: [phone] BMI: 31.63 Baseline Rhythm: Sinus Rhythm. Comment: Occasional PVC's. Indications: Intermittent Chest Pain; Strong Family Hx of CAD; Not on Beta Tiffanie. Medical History Medical History: Traumatic Pelvic Fx/Urethral Dissection; HLD; HTN; Arthritis; BPH; Prediabetes; Diverticulitis; GERD; Insomnia; RLS. Cardiac Medications: Aspirin; Losartan; Pantoprazole; Rosuvastatin. Allergies: Ciprofloxacin; Contrast; COVID vaccine; Gabapentin; Iodine; Lisinopril; Pregabalin; Tramadol. Cardiac Risk Factors: Family Hx; HLD; HTN; Former Smoker. Previous Cardiac Procedures: None. Pretest Chest Pain Characteristics: None. Exercise History: Indeterminate. Physical Disabilities: None. Lung Sounds: Clear bilaterally throughout, anterior and posterior. Heart Sounds: S1 and S2 auscultated. Stress Test Details Test: Exercise stress testing was performed using a Erik protocol. Nuclear Acquisition: Rest Tc-99m/Stress Tc-99m 1 day Rest Isotope: Tc-99m Sestamibi. Dose: 7.0 Date: 10/06/2025 Injection Time: 0845 Stress Isotope: Tc-99m Sestamibi. Dose: 22.0 Date: 10/06/2025 Injection Time: 1024 HR Resting HR Supine: 61 bpm Max Heart Rate (APMHR): 151 bpm Resting HR Standin bpm Target HR (85% APMHR): 128 bpm Max HR Achieved: 133 bpm % of APMHR: 88 Recovery HR: 62 bpm HR response to stress: Normal HR response to stress. BP Resting BP Supine: 180/88 mmHg Resting BP Standin/96 mmHg Max BP: 204/86 mmHg Recovery BP: 160/82 mmHg BP response to stress: Normal blood pressure response to stress. ECG Resting ECG: Sinus Rhythm. Ectopy: Occasional PVC's. Stress ECG: Sinus Tachycardia. Lead(s): . Stage: 2 Arrhythmia: Occasional PVC's. Recovery ECG: Sinus Rhythm. Recovery Arrhythmia: Occasional PVC's. Clinical Reason for Termination: Target HR Achieved, ST changes. Stress Symptoms: None. Exercise duration: 04 min25 sec Highest Stage Reached: Stage 2: 2.5 mph at 12% grade. Exercise capacity: 6.34 METs Angina Score: None Rate Pressure Product: [id number] Stress ECG Conclusion 1. Resting electrocardiogram was normal 2. Patient exercised on the Erik protocol and completed workload of 6 METS 3. Normal heart rate and blood pressure response to exercise. The patient achieved 88% of maximal predicted heart rate for age 4. There was no electrocardiographic evidence of myocardial ischemia 5. There were no significant dysrhythmias 6. See MPI report Stress Test Summary STAGE Time (mins) Speed (mph) Grade (%) HR BP SpO2 SYMPTOMS METS Supine 61 180/88 93 Pt. denied any symptoms. Standing 66 188/96 95 Pt. denied any symptoms. 1 3 1.7 10 120 202/90 Pt. denied any symptoms. 4.5 2 6 2.5 12 132 Pt. denied any symptoms. Stress test was stopped due to RN noting some ST changes. 7 1 min recovery 108 204/86 94 Pt. denied any symptoms. 3 min recovery 72 170/90 93 Pt. denied any symptoms. 6 min recovery 61 158/92 95 Pt. denied any symptoms. 9 min recovery 62 160/82 94 Pt. denied any symptoms. Pt. performed a NM MPI stress test using the Erik protocol. MPI stress test was stopped when pt. achieved a heart rate higher than his target heart rate and when RN noted some ST changes. Pt. was completely asymptomatic throughout the entire stress test. During Stage 2 of exercise, pt. was noted to be having horizontal and upsloping ST depressions ranging from 1-3.5 mm in leads II, III, aVF, V4, V5, and V6. During Stage 1 of recovery, pt. was noted to be having horizontal and upsloping ST depressions ranging from 1-3.5 mm in leads II, III, aVF, V4, V5, and V6. ST changes recovered to baseline prior to the pt. leaving the Stress Lab. Pt. was conversing pleasantly with nursing staff upon leaving the Stress Lab. Pt. left ambulatory in no apparent distress. MPI Conclusion Myocardial perfusion was normal. There was no ischemia or evidence of prior infarction
== END ==
PROVIDERS: PCP Nurse Practitioner Family; Visit Provider Family Medicine
DX: R07.9 Chest pain, unspecified (principal)
CPT/HCPCS: 78452; 93016; 93018; 93017